=== PATIENT | female | born 2000 | race Two or more races ===

== ENCOUNTER 2024-07-08 09:53 | Inpatient (IN) ==
[2024-07-08] MEDS ORDERED: Lidocaine 1% VIAL 10 MG/ML 30 ML VIAL INJ PRN (11:34)
[2024-07-08] MEDS: miSOPROStol 100 mcg TAB PO ONE ×3 (11:56→20:48)
[2024-07-08 13:52] LABS: Urine Benzodiazepine Screen None Detected (None Detect); Urine Cannabinoids Screen None Detected (None Detect); Urine Opiates Screen None Detected (None Detect)
[2024-07-09] MEDS: miSOPROStol 100 mcg TAB PO ONE ×3 (11:23→21:40)
[2024-07-09 11:58] LABS: ABS Eosinophils 0.1 10^3/uL (0.0-0.5); ABS Lymphocytes 2.1 10^3/uL (1.0-4.8); ABS Monocytes 0.5 10^3/uL (0.0-0.9); ABS Neutrophils 4.8 10^3/uL (1.5-7.6); Eosinophil % 1.3 %; Hematocrit 33.3 % (35-45); Hemoglobin 11.1 g/dL (11.5-14.3); Mean Corpuscular Hemoglobin 25.5 pg (27-33); Mean Corpuscular Hgb Conc 33.4 g/dL (31-36); Mean Corpuscular Volume 76.5 fL (80-97); Mean Platelet Volume 8.8 fL (7.5-11.2); Platelet Count 274 10^3/uL (150-450); Red Blood Count 4.36 10^6/uL (3.63-4.92); Red Cell Distribution Width 15.3 % (12-17); White Blood Count 7.6 10^3/uL (3.8-11.8)
[2024-07-09] MEDS: Lactated Ringers 1000 ml BAG 1,000 ML IV ONE (12:36)
[2024-07-09] MEDS: Penicillin G Potassium IV 5,000,000 UNITS in NS 0.9% 100 ml BAG 100 ML IVPB ONE (12:36)
[2024-07-09] MEDS: Penicillin G Potassium IV 3,000,000 UNITS in NS 0.9% 100 ml BAG 100 ML IVPB SCH (16:33)
[2024-07-09] MEDS: Prochlorperazine 5 mg/ml 2 ml VIAL (10 mg) IV PRN (17:05)
[2024-07-09] MEDS: Nalbuphine 10 MG/ML 1 ML VIAL IV PRN (17:08)
[2024-07-10] MEDS: Lactated Ringers 1000 ml BAG 1,000 ML IV SCH ×2 (00:30→07:21)
[2024-07-10] MEDS ORDERED: Sodium Citrate/Citric Acid LIQ 15 ML UDC PO PRN (01:59)
[2024-07-10] MEDS ORDERED: Phenylephrine 40 mcg/mL 10mL (400mcg) SYRINGE IV PUSH PRN ×2 (01:59)
[2024-07-10] MEDS: OBEPIDURAL (200 ML) 200 ML EPIDURAL ONE (02:00)
[2024-07-10] MEDS: Lidocaine 1.5% EPI 1:200,000 30 ML SDV ONE (02:33)
[2024-07-10] MEDS: Oxytocin in LR 20,000 MILLI.UNIT/1,000 ML BAG IV SCH ×2 (02:45→17:04)
[2024-07-10 03:01] LABS: Urine Appearance Clear; Urine Bilirubin Negative (Negative); Urine Blood Negative (Negative); Urine Color Colorless; Urine Glucose Negative (Negative); Urine Ketones 2+ (Negative); Urine Nitrite Negative (Negative); Urine Protein Negative (Negative); Urine Urobilinogen Negative (Negative)
[2024-07-10] MEDS: Lactated Ringers 1000 ml BAG 1,000 ML IV ONE (07:18)
[2024-07-10] MEDS: OBEPIDURAL (200 ML) 200 ML EPIDURAL SCH (07:19)
[2024-07-10] MEDS: miSOPROStol 100 mcg TAB PO ONE (07:22)
[2024-07-10] MEDS: Buffered Lidocaine 1% SYRIN 1 ml INTRADERM ONE (07:23)
[2024-07-10] MEDS: Phenylephrine 40 mcg/mL 10mL (400mcg) SYRINGE ONE (15:38)
[2024-07-10] MEDS ORDERED: Glycerin ADULT 2.4 gm SUPP PR PRN (16:30)
[2024-07-10] MEDS: Dibucaine 1% OINT 28.35 GM TUBE PR PRN (17:03)
[2024-07-10] MEDS: Witch Hazel PAD JAR TOPICAL PRN (17:03)
[2024-07-11 07:13] LABS: ABS Eosinophils 0.1 10^3/uL (0.0-0.5); ABS Lymphocytes 2.3 10^3/uL (1.0-4.8); ABS Monocytes 0.6 10^3/uL (0.0-0.9); ABS Neutrophils 7.8 10^3/uL (1.5-7.6); Eosinophil % 1.2 %; Hematocrit 28.3 % (35-45); Hemoglobin 9.6 g/dL (11.5-14.3); Lymphocyte % 20.9 %; Mean Corpuscular Hemoglobin 25.8 pg (27-33); Mean Corpuscular Hgb Conc 33.8 g/dL (31-36); Mean Corpuscular Volume 76.2 fL (80-97); Mean Platelet Volume 8.9 fL (7.5-11.2); Platelet Count 232 10^3/uL (150-450); Red Blood Count 3.71 10^6/uL (3.63-4.92); White Blood Count 10.8 10^3/uL (3.8-11.8)
[2024-07-12] MEDS: Varicella Virus Vaccine Live 0.5 ML VIAL SUBCUT ONE (15:26)
[2024-07-12 15:27] VITALS: BP 117/65
== END 2024-07-12 18:20 | disposition home or self-care (01) | DRG 560 ==
LOC: MCHOBOUT 09:53 → MCHOB 11:44
PROVIDERS: ADMIT Midwife; ATTEND Midwife